=== PATIENT | male | born 1950 | race Two or more races ===

== ENCOUNTER 2021-04-20 22:44 | Inpatient (IN) | payer OTHER ==
[~2021-04-20] VITALS: Ht 177.8 cm; Wt 78.5 kg
[2021-04-20] MEDS ORDERED: MORPHINE SULFATE 4 MG/ML CPJ (NOT FOR IM USE) IV STA (23:43)
[2021-04-20] MEDS ORDERED: ACETAMINOPHEN 325MG TABLET PO STA (23:43)
[2021-04-21 00:39] LABS: BASOPHILS % 1.4 % (0.0-2.0); EOSINOPHILS % 0.3 % (0.0-5.0); HEMOGLOBIN. 12.1 g/dL (14.0-18.0); LYMPHOCYTES % 30.7 % (20.0-50.0); MEAN CORPUSCULAR VOLUME 95.6 fL (80.0-94.0); MEAN PLATELET VOLUME 8.3 fl (7.4-10.4); MONOCYTES % 14.8 % (2.0-8.0); NEUTROPHILS % 52.8 % (40.0-76.0); PLATELET 191 x1000/uL (130-400); RED BLOOD CELL COUNT 3.76 mill/uL (4.7-6.1)
[2021-04-21 00:41] LABS: CHLORIDE 105 mEq/L (98-107)
[2021-04-21] MEDS ORDERED: LACTATED RINGERS 1,000 ML IV SCH (02:00)
[2021-04-21] MEDS ORDERED: MORPHINE SULFATE 2 MG/ML CPJ (NOT FOR IM USE) IV PRN (04:00)
[2021-04-21] MEDS ORDERED: HYDROCODONE/ACETAMINOPHEN 5/325MG TABLET PO PRN (04:00)
[2021-04-21] MEDS ORDERED: ACETAMINOPHEN 325MG TABLET PO PRN (04:00)
[2021-04-21] MEDS ORDERED: GUAIFENESIN 200MG/10ML SUGAR FREE UDC PO PRN (04:00)
[2021-04-21] MEDS ORDERED: DOCUSATE SODIUM 100MG CAPSULE PO PRN (04:00)
[2021-04-21] MEDS ORDERED: ONDANSETRON HCL 4MG/2ML INJ IV PRN (04:00)
[2021-04-21 06:23] LABS: CREATINE KINASE 105 IU/L (39-308)
[2021-04-21 08:35] VITALS: BP 110/65
[2021-04-21 09:30] VITALS: BP 110/65
[2021-04-21] MEDS: ASPIRIN 81MG EC TABLET PO SCH (11:41)
[2021-04-21] MEDS: MULTIVITAMINS,THER W-MINERALS TABLET PO SCH (11:41)
[2021-04-21] MEDS: ENOXAPARIN 30MG/0.3ML SYR SUBCUT SCH (11:42)
[2021-04-21 12:05] VITALS: BP 106/72
[2021-04-21 12:12] VITALS: BP 83/49
[2021-04-21] MEDS: PROPRANOLOL HCL 10MG TABLET PO SCH ×2 (13:00→20:12)
[2021-04-21] MEDS: LAMOTRIGINE 100MG TABLET PO SCH ×2 (14:45→20:12)
[2021-04-21 16:12] VITALS: BP 91/54
[2021-04-21 16:23] LABS: CREATINE KINASE 83 IU/L (39-308)
[2021-04-21] MEDS: SODIUM CHLORIDE 0.9% 1,000 ML IV SCH ×2 (17:22→20:13)
[2021-04-21 20:00] VITALS: BP 90/54
[2021-04-21] MEDS ORDERED: NALOXONE HCL 0.4MG/ML VIAL IV PRN (22:30)
[2021-04-22] VITALS (7 sets, daily range): BP systolic 92–148; BP diastolic 58–87
[2021-04-22] MEDS: LORAZEPAM 2MG/ML CPJ IV PRN ×2 (02:51→10:46)
[2021-04-22 07:22] LABS: BASOPHILS % 1.1 % (0.0-2.0); CHLORIDE 110 mEq/L (98-107); EOSINOPHILS % 0.8 % (0.0-5.0); HEMATOCRIT. 33.1 % (42.0-52.0); LYMPHOCYTES % 31.8 % (20.0-50.0); MEAN CORPUSCULAR HEMOGLOBIN 32.4 pg (28.0-32.0); MEAN CORPUSCULAR VOLUME 97.2 fL (80.0-94.0); MEAN PLATELET VOLUME 8.6 fl (7.4-10.4); MONOCYTES % 14.5 % (2.0-8.0); NEUTROPHILS % 51.8 % (40.0-76.0); PLATELET 136 x1000/uL (130-400); RED BLOOD CELL COUNT 3.41 mill/uL (4.7-6.1); RED CELL DISTRIBUTION WIDTH 13.7 % (11.6-14.6)
[2021-04-22 07:30] LABS: HDL CHOLESTEROL 37 mg/dL (40-59); LDL CHOLESTEROL 99 mg/dL (5-100)
[2021-04-22] MEDS: ENOXAPARIN 30MG/0.3ML SYR SUBCUT SCH (08:43)
[2021-04-22] MEDS: MULTIVITAMINS,THER W-MINERALS TABLET PO SCH (08:43)
[2021-04-22] MEDS: LAMOTRIGINE 100MG TABLET PO SCH ×2 (08:43→21:21)
[2021-04-22] MEDS: ASPIRIN 81MG EC TABLET PO SCH (08:44)
[2021-04-22] MEDS: PROPRANOLOL HCL 10MG TABLET PO SCH ×2 (08:49→21:00)
[2021-04-22] MEDS: SODIUM CHLORIDE 0.9% 1,000 ML IV SCH ×2 (08:55→18:45)
[2021-04-22] MEDS: CHLORDIAZEPOXIDE 5 MG CAPSULE PO SCH ×2 (13:12→21:20)
[2021-04-22] MEDS: HALOPERIDOL LACTATE 5MG/ML VIAL IM PRN ×2 (14:48→23:05)
[2021-04-23] VITALS: BP 126/91
[2021-04-23] MEDS: LORAZEPAM 2MG/ML CPJ IV PRN ×2 (03:40→21:37)
[2021-04-23 04:00] VITALS: BP 128/72
[2021-04-23] MEDS: SODIUM CHLORIDE 0.9% 1,000 ML IV SCH ×2 (04:59→14:59)
[2021-04-23] MEDS: CHLORDIAZEPOXIDE 5 MG CAPSULE PO SCH ×4 (05:01→22:00)
[2021-04-23 08:00] VITALS: BP 128/56
[2021-04-23] MEDS: LAMOTRIGINE 100MG TABLET PO SCH ×3 (08:52→21:27)
[2021-04-23] MEDS: ASPIRIN 81MG EC TABLET PO SCH (08:52)
[2021-04-23] MEDS: PROPRANOLOL HCL 10MG TABLET PO SCH ×3 (08:53→21:27)
[2021-04-23] MEDS: MULTIVITAMINS,THER W-MINERALS TABLET PO SCH (08:53)
[2021-04-23] MEDS: ENOXAPARIN 40MG/0.4ML SYR SUBCUT SCH (08:54)
[2021-04-23 12:00] VITALS: BP_SYST 127; BP_SYST 128; BP_DIAS 56; BP_DIAS 76
[2021-04-23 16:00] VITALS: BP 92/63
[2021-04-23 20:00] VITALS: BP 128/62
[2021-04-24] VITALS: BP 125/95
[2021-04-24] MEDS: HALOPERIDOL LACTATE 5MG/ML VIAL IM PRN (00:15)
[2021-04-24] MEDS: SODIUM CHLORIDE 0.9% 1,000 ML IV SCH ×2 (00:23→20:45)
[2021-04-24 04:00] VITALS: BP 114/63
[2021-04-24] MEDS: CHLORDIAZEPOXIDE 5 MG CAPSULE PO SCH ×3 (06:00→21:39)
[2021-04-24] MEDS: LORAZEPAM 2MG/ML CPJ IV PRN (06:20)
[2021-04-24 08:00] VITALS: BP 123/50
[2021-04-24] MEDS: MULTIVITAMINS,THER W-MINERALS TABLET PO SCH ×2 (09:00→14:08)
[2021-04-24] MEDS: ASPIRIN 81MG EC TABLET PO SCH (09:00)
[2021-04-24] MEDS: LAMOTRIGINE 100MG TABLET PO SCH ×3 (09:00→21:39)
[2021-04-24] MEDS: PROPRANOLOL HCL 10MG TABLET PO SCH ×2 (09:00→21:39)
[2021-04-24] MEDS: ENOXAPARIN 40MG/0.4ML SYR SUBCUT SCH (10:12)
[2021-04-24 12:00] VITALS: BP 123/55
[2021-04-24 16:00] VITALS: BP 130/52
[2021-04-24 20:00] VITALS: BP 126/84
[2021-04-25 00:17] VITALS: BP 125/72
[2021-04-25] MEDS: SODIUM CHLORIDE 0.9% 1,000 ML IV SCH ×3 (01:38→16:58)
[2021-04-25 04:00] VITALS: BP 105/69
[2021-04-25] MEDS: CHLORDIAZEPOXIDE 5 MG CAPSULE PO SCH ×3 (06:18→21:02)
[2021-04-25] MEDS: LAMOTRIGINE 100MG TABLET PO SCH ×2 (09:00→17:00)
[2021-04-25] MEDS: ASPIRIN 81MG EC TABLET PO SCH (09:00)
[2021-04-25] MEDS: ENOXAPARIN 40MG/0.4ML SYR SUBCUT SCH (09:55)
[2021-04-25] MEDS: PROPRANOLOL HCL 10MG TABLET PO SCH ×2 (09:57→21:00)
[2021-04-25 12:00] VITALS: BP 116/75
[2021-04-25 16:00] VITALS: BP 124/68
[2021-04-25] MEDS: LORAZEPAM 2MG/ML CPJ IV PRN (16:13)
[2021-04-25 18:28] LABS: BG BASE EXCESS -2.8 mmol/L (-2.0-2.0); BG CARBOXYHEMOGLOBIN 0.4 % (0.5-1.5); BG DEOXYHEMOGLOBIN 5.8 % (0.0-5.0); BG FRACTION INSPIRED OXYGEN 28; BG HCO3 ACT 20.2 mmol/L (22.0-26.0); BG METHEMOGLOBIN 0.4 % (0.0-1.5); BG OXYGEN SATURATION 94.2 % (92.0-98.5); BG OXYHEMOGLOBIN 93.4 % (94.0-97.0); BG PCO2 29.7 mmHg (35.0-45.0); BG PH 7.451 (7.350-7.450); BG PO2 70.7 mmHg (75.0-100.0); BG SAMPLE SITE RIGHT RADIAL; BG TOTAL HEMOGLOBIN 11.8 g/dL (12.0-18.0); BG VENT MODE NASAL CANNULA
[2021-04-25 20:35] VITALS: BP 122/62
[2021-04-25 20:48] LABS: HEMATOCRIT. 34.6 % (42.0-52.0); HEMOGLOBIN. 11.9 g/dL (14.0-18.0); MEAN CORPUSCULAR HEMOGLOBIN 32.6 pg (28.0-32.0); MEAN CORPUSCULAR VOLUME 95.3 fL (80.0-94.0); MEAN PLATELET VOLUME 8.3 fl (7.4-10.4); PLATELET 190 x1000/uL (130-400); RED BLOOD CELL COUNT 3.63 mill/uL (4.7-6.1); RED CELL DISTRIBUTION WIDTH 13.4 % (11.6-14.6)
[2021-04-25] MEDS: PANTOPRAZOLE SODIUM 40 MG/VIAL IV SCH (21:04)
[2021-04-25 21:56] LABS: PLATELET ESTIMATE NORMAL
[2021-04-25] MEDS: ACETAMINOPHEN 650MG SUPP PR PRN (22:18)
[2021-04-26] VITALS: BP 120/63
[2021-04-26 04:00] VITALS: BP 114/73
[2021-04-26] MEDS: LORAZEPAM 2MG/ML CPJ IV PRN ×2 (04:29→20:31)
[2021-04-26] MEDS: CHLORDIAZEPOXIDE 5 MG CAPSULE PO SCH ×3 (06:20→20:33)
[2021-04-26 08:11] VITALS: BP 129/63
[2021-04-26] MEDS: ACETAMINOPHEN 650MG SUPP PR PRN (08:24)
[2021-04-26] MEDS: LAMOTRIGINE 100MG TABLET PO SCH ×2 (09:00→20:34)
[2021-04-26] MEDS: MULTIVITAMINS,THER W-MINERALS TABLET PO SCH (09:00)
[2021-04-26] MEDS: ASPIRIN 81MG EC TABLET PO SCH (09:00)
[2021-04-26] MEDS: PROPRANOLOL HCL 10MG TABLET PO SCH ×2 (09:00→20:33)
[2021-04-26] MEDS: PANTOPRAZOLE SODIUM 40 MG/VIAL IV SCH (10:18)
[2021-04-26] MEDS: DEXT 5%/0.9% NACL 1,000 ML IV SCH ×2 (11:48→20:41)
[2021-04-26 12:15] VITALS: BP 100/60
[2021-04-26 16:06] VITALS: BP 115/74
[2021-04-26 16:37] LABS: BASOPHILS % 0.3 % (0.0-2.0); HEMATOCRIT. 32.1 % (42.0-52.0); HEMOGLOBIN. 10.9 g/dL (14.0-18.0); LYMPHOCYTES % 11.4 % (20.0-50.0); MEAN CORPUSCULAR HEMOGLOBIN 32.8 pg (28.0-32.0); MEAN CORPUSCULAR VOLUME 96.2 fL (80.0-94.0); MEAN PLATELET VOLUME 9.1 fl (7.4-10.4); MONOCYTES % 13.8 % (2.0-8.0); NEUTROPHILS % 74.5 % (40.0-76.0); PLATELET 173 x1000/uL (130-400); RED BLOOD CELL COUNT 3.34 mill/uL (4.7-6.1); RED CELL DISTRIBUTION WIDTH 13.4 % (11.6-14.6)
[2021-04-26 17:56] LABS: CHLORIDE 110 mEq/L (98-107)
[2021-04-26] MEDS ORDERED: POTASSIUM CHLORIDE INJ 40 MEQ in DEXT 5% WATER 250 ML IV NR ×2 (19:30→23:30)
[2021-04-26 20:00] VITALS: BP 121/68
[2021-04-26] MEDS: FAMOTIDINE 20MG/2ML VIAL IV SCH (20:36)
[2021-04-26] MEDS: HALOPERIDOL LACTATE 5MG/ML VIAL IM PRN (20:48)
[2021-04-27] VITALS: BP 134/28
[2021-04-27] MEDS: ACETYLCYSTEINE 100MG/ML 10% VIAL 4ML INH SCH (01:00)
[2021-04-27] MEDS ORDERED: LORAZEPAM 2MG/ML CPJ IV PRN (03:30)
[2021-04-27 04:00] VITALS: BP 144/35
[2021-04-27] MEDS: CHLORDIAZEPOXIDE 5 MG CAPSULE PO SCH ×2 (05:42→15:11)
[2021-04-27 08:00] VITALS: BP 107/67
[2021-04-27] MEDS: PROPRANOLOL HCL 10MG TABLET PO SCH ×2 (09:00→20:47)
[2021-04-27] MEDS: ENOXAPARIN 40MG/0.4ML SYR SUBCUT SCH (09:00)
[2021-04-27] MEDS: FAMOTIDINE 20MG/2ML VIAL IV SCH ×2 (09:39→20:44)
[2021-04-27] MEDS: LAMOTRIGINE 100MG TABLET PO SCH ×2 (09:39→20:44)
[2021-04-27] MEDS: ASPIRIN 81MG EC TABLET PO SCH (09:39)
[2021-04-27] MEDS: MULTIVITAMINS,THER W-MINERALS TABLET PO SCH (09:39)
[2021-04-27] MEDS: DEXT 5%/0.9% NACL 1,000 ML IV SCH ×2 (09:47→17:03)
[2021-04-27 10:07] LABS: CHLORIDE 113 mEq/L (98-107)
[2021-04-27 12:00] VITALS: BP 97/58
[2021-04-27 16:00] VITALS: BP 114/73
[2021-04-27 20:00] VITALS: BP 106/59
[2021-04-28] VITALS (7 sets, daily range): BP systolic 86–135; BP diastolic 45–72
[2021-04-28] MEDS: DEXT 5%/0.9% NACL 1,000 ML IV SCH ×3 (03:46→23:00)
[2021-04-28] MEDS: IPRATROPIUM/ALBUTEROL 0.5-3(2.5)MG/3ML NEB HHN PRN ×4 (04:12→12:07)
[2021-04-28] MEDS: ACETYLCYSTEINE 100MG/ML 10% VIAL 4ML INH SCH ×2 (08:42→12:07)
[2021-04-28] MEDS: PROPRANOLOL HCL 10MG TABLET PO SCH ×2 (09:00→21:00)
[2021-04-28] MEDS: MULTIVITAMINS,THER W-MINERALS TABLET PO SCH (10:19)
[2021-04-28] MEDS: ASPIRIN 81MG EC TABLET PO SCH (10:19)
[2021-04-28] MEDS: ENOXAPARIN 40MG/0.4ML SYR SUBCUT SCH (10:19)
[2021-04-28] MEDS: LAMOTRIGINE 100MG TABLET PO SCH ×2 (10:19→21:00)
[2021-04-28] MEDS: FAMOTIDINE 20MG/2ML VIAL IV SCH ×2 (10:20→21:18)
[2021-04-28] MEDS ORDERED: FUROSEMIDE 40MG/4ML VIAL IVP SCH (16:00)
[2021-04-28 16:01] LABS: BG BASE EXCESS 0.8 mmol/L (-2.0-2.0); BG DEOXYHEMOGLOBIN 14.1 % (0.0-5.0); BG HCO3 ACT 24.9 mmol/L (22.0-26.0); BG METHEMOGLOBIN 0.3 % (0.0-1.5); BG OXYGEN SATURATION 85.9 % (92.0-98.5); BG OXYHEMOGLOBIN 85.6 % (94.0-97.0); BG PCO2 37.8 mmHg (35.0-45.0); BG PH 7.437 (7.350-7.450); BG PO2 47.1 mmHg (75.0-100.0); BG SAMPLE SITE RIGHT BRACHIAL; BG TOTAL HEMOGLOBIN 11.1 g/dL (12.0-18.0); BG VENT MODE NASAL CANNULA
[2021-04-28] MEDS: IPRATROPIUM/ALBUTEROL 0.5-3(2.5)MG/3ML NEB HHN SCH ×2 (16:45→21:44)
[2021-04-28] MEDS: THIAMINE HCL 100MG TABLET PO SCH (17:15)
[2021-04-28] MEDS: PIPERACILLIN/TAZOBACTAM 3.375 G in DEXTROSE 5% WATER 50 ML IV SCH (19:55)
[2021-04-28 22:02] LABS: INR 1.2; PROTHROMBIN TIME 12.3 sec (9.6-11.0)
[2021-04-29] VITALS (64 sets, daily range): BP systolic 61–140; BP diastolic 40–97
[2021-04-29] MEDS: IPRATROPIUM/ALBUTEROL 0.5-3(2.5)MG/3ML NEB HHN SCH ×6 (01:16→20:30)
[2021-04-29] MEDS: ACETYLCYSTEINE 100MG/ML 10% VIAL 4ML INH SCH ×3 (01:17→16:58)
[2021-04-29] MEDS: PIPERACILLIN/TAZOBACTAM 3.375 G in DEXTROSE 5% WATER 50 ML IV SCH ×4 (01:53→17:32)
[2021-04-29] MEDS: PROPRANOLOL HCL 10MG TABLET PO SCH ×2 (09:00→21:00)
[2021-04-29] MEDS: LAMOTRIGINE 100MG TABLET PO SCH ×2 (09:00→14:18)
[2021-04-29] MEDS: ENOXAPARIN 40MG/0.4ML SYR SUBCUT SCH (09:00)
[2021-04-29] MEDS ORDERED: PROPOFOL 10MG/ML 100ML 100 ML IV PRN (09:00)
[2021-04-29] MEDS ORDERED: NOREPINEPHRINE 32 MG in DEXT 5% WATER 218 ML IV PRN (09:15)
[2021-04-29] MEDS ORDERED: FENTANYL CITRATE/PF 2,500 MCG in SODIUM CHLORIDE 0.9% 200 ML IV PRN (09:30)
[2021-04-29 10:02] LABS: BG BASE EXCESS 1.3 mmol/L (-2.0-2.0); BG CARBOXYHEMOGLOBIN 0.3 % (0.5-1.5); BG DEOXYHEMOGLOBIN 0.9 % (0.0-5.0); BG FRACTION INSPIRED OXYGEN 100; BG HCO3 ACT 26.8 mmol/L (22.0-26.0); BG METHEMOGLOBIN 0.1 % (0.0-1.5); BG OXYGEN SATURATION 99.1 % (92.0-98.5); BG OXYHEMOGLOBIN 98.7 % (94.0-97.0); BG PH 7.383 (7.350-7.450); BG PO2 163.3 mmHg (75.0-100.0); BG SAMPLE SITE RIGHT RADIAL; BG TOTAL HEMOGLOBIN 12.1 g/dL (12.0-18.0); BG VENT MODE VENT - AC
[2021-04-29] MEDS ORDERED: LIDOCAINE HCL 1% 20ML VIAL (Pyxis) INJ ONE (10:16)
[2021-04-29] MEDS: ASPIRIN 81MG EC TABLET PO SCH (11:25)
[2021-04-29] MEDS: MULTIVITAMINS,THER W-MINERALS TABLET PO SCH (11:25)
[2021-04-29] MEDS: FAMOTIDINE 20MG/2ML VIAL IV SCH ×2 (11:26→21:07)
[2021-04-29] MEDS: THIAMINE HCL 100MG TABLET PO SCH (11:26)
[2021-04-29] MEDS: DEXT 5%/0.9% NACL 1,000 ML IV SCH ×2 (11:34→21:07)
[2021-04-29 13:37] LABS: HEMATOCRIT. 32.2 % (42.0-52.0); HEMOGLOBIN. 10.7 g/dL (14.0-18.0); MEAN CORPUSCULAR HEMOGLOBIN 31.8 pg (28.0-32.0); MEAN CORPUSCULAR VOLUME 95.6 fL (80.0-94.0); MEAN PLATELET VOLUME 7.2 fl (7.4-10.4); PLATELET 223 x1000/uL (130-400); RED BLOOD CELL COUNT 3.37 mill/uL (4.7-6.1); RED CELL DISTRIBUTION WIDTH 13.7 % (11.6-14.6)
[2021-04-29 13:57] LABS: CHLORIDE 107 mEq/L (98-107)
[2021-04-29 14:30] LABS: PLATELET ESTIMATE NORMAL
[2021-04-29 14:39] LABS: CLARITY URINE CLOUDY (CLEAR); COLOR URINE DARK YELLOW (YELLOW); KETONES URINE NEGATIVE (NEGATIVE); LEUKOCYTE ESTERASE URINE NEGATIVE (NEGATIVE); NITRITE URINE NEGATIVE (NEGATIVE); OCCULT BLOOD URINE NEGATIVE (NEGATIVE); PROTEIN URINE NEGATIVE (NEGATIVE); SPECIFIC GRAVITY URINE 1.015 (1.005-1.030)
[2021-04-29] MEDS ORDERED: POTASSIUM CHLORIDE INJ 40 MEQ in DEXT 5% WATER 250 ML IV NR (18:00)
[2021-04-30] VITALS (85 sets, daily range): BP systolic 46–126; BP diastolic 18–86
[2021-04-30] MEDS: ACETYLCYSTEINE 100MG/ML 10% VIAL 4ML INH SCH ×2 (00:17→08:59)
[2021-04-30] MEDS: IPRATROPIUM/ALBUTEROL 0.5-3(2.5)MG/3ML NEB HHN SCH ×3 (00:17→08:59)
[2021-04-30] MEDS: PIPERACILLIN/TAZOBACTAM 3.375 G in DEXTROSE 5% WATER 50 ML IV SCH ×2 (06:48)
[2021-04-30] MEDS: DEXT 5%/0.9% NACL 1,000 ML IV SCH (06:48)
[2021-04-30 07:26] LABS: BG CARBOXYHEMOGLOBIN 0.3 % (0.5-1.5); BG DEOXYHEMOGLOBIN 0.2 % (0.0-5.0); BG FRACTION INSPIRED OXYGEN 80; BG METHEMOGLOBIN 0.7 % (0.0-1.5); BG OXYGEN SATURATION 99.8 % (92.0-98.5); BG OXYHEMOGLOBIN 98.8 % (94.0-97.0); BG PCO2 47.8 mmHg (35.0-45.0); BG PH 7.353 (7.350-7.450); BG PO2 259.1 mmHg (75.0-100.0); BG SAMPLE SITE RIGHT RADIAL; BG TOTAL HEMOGLOBIN 11.6 g/dL (12.0-18.0); BG VENT MODE VENT - AC
[2021-04-30 08:01] LABS: BASOPHILS % 0.3 % (0.0-2.0); EOSINOPHILS % 0.3 % (0.0-5.0); HEMATOCRIT. 29.8 % (42.0-52.0); HEMOGLOBIN. 9.9 g/dL (14.0-18.0); LYMPHOCYTES % 8.1 % (20.0-50.0); MEAN CORPUSCULAR HEMOGLOBIN 31.3 pg (28.0-32.0); MEAN CORPUSCULAR VOLUME 94.3 fL (80.0-94.0); MEAN PLATELET VOLUME 7.6 fl (7.4-10.4); MONOCYTES % 9.9 % (2.0-8.0); NEUTROPHILS % 81.4 % (40.0-76.0); PLATELET 257 x1000/uL (130-400); RED BLOOD CELL COUNT 3.16 mill/uL (4.7-6.1); RED CELL DISTRIBUTION WIDTH 13.8 % (11.6-14.6)
[2021-04-30 08:21] LABS: CHLORIDE 110 mEq/L (98-107)
[2021-04-30] MEDS: FAMOTIDINE 20MG/2ML VIAL IV SCH (09:25)
[2021-04-30] MEDS: LAMOTRIGINE 100MG TABLET PO SCH (09:25)
[2021-04-30] MEDS: THIAMINE HCL 100MG TABLET PO SCH (09:25)
[2021-04-30] MEDS: ENOXAPARIN 40MG/0.4ML SYR SUBCUT SCH (09:25)
[2021-04-30] MEDS: MULTIVITAMINS,THER W-MINERALS TABLET PO SCH (09:26)
[2021-04-30] MEDS: PROPRANOLOL HCL 10MG TABLET PO SCH (09:26)
[2021-04-30] MEDS: ASPIRIN 81MG EC TABLET PO SCH (09:26)
[2021-04-30] MEDS: MORPHINE SULFATE 250 MG in DEXT 5% WATER 240 ML IV PRN ×2 (12:11→18:54)
[2021-05-01] VITALS (12 sets, daily range): BP systolic 55–74; BP diastolic 35–40
[2021-05-01] MEDS: MORPHINE SULFATE 250 MG in DEXT 5% WATER 240 ML IV PRN ×2 (01:33→18:21)
[2021-05-02] VITALS: BP 63/36
[2021-05-02 04:00] VITALS: BP 69/38
[2021-05-02 08:00] VITALS: BP 72/38
[2021-05-02 12:00] VITALS: BP 69/34
[2021-05-02 16:00] VITALS: BP 76/42
[2021-05-02 17:21] VITALS: BP 76/42
[2021-05-03] VITALS: BP 66/33
[2021-05-03 04:00] VITALS: BP 74/40
[2021-05-03 08:00] VITALS: BP 79/37
[2021-05-03 12:00] VITALS: BP 64/26
[2021-05-03] MEDS ORDERED: MORPHINE SULFATE 250 MG in DEXT 5% WATER 240 ML IV SCH (14:15)
[2021-05-03 15:25] VITALS: BP 118/69
== END 2021-05-03 12:48 | DRG 208 ==
LOC: ER 22:44 → 6WST 04-21 03:06 → EDBEDREQTM 04-21 03:22 → EDBEDREQ 04-21 03:22 → ENRESERV 04-21 07:37 → 6WST 04-22 19:45 → 3WST 04-28 17:53 → CVICU 04-29 09:10 → 6EST 05-01 01:45
PROVIDERS: ADMIT Hospitalist; ATTEND Hospitalist
PROC: 5A1945Z Respiratory Ventilation, 24-96 Consecutive Hours (ICD-10-PCS; principal; 2021-04-29)
PROC: 0BH17EZ Insertion of Endotracheal Airway into Trachea, Via Natural or Artificial Opening (ICD-10-PCS; 2021-04-29)
PROC: 02HV33Z Insertion of Infusion Device into Superior Vena Cava, Percutaneous Approach (ICD-10-PCS; 2021-04-29)
PROC: B548ZZA Ultrasonography of Superior Vena Cava, Guidance (ICD-10-PCS; 2021-04-29)
DX: J96.00 Acute respiratory failure, unspecified whether with hypoxia or hypercapnia (principal); L89.153 Pressure ulcer of sacral region, stage 3; J69.0 Pneumonitis due to inhalation of food and vomit; E43 Unspecified severe protein-calorie malnutrition; G93.40 Encephalopathy, unspecified; N17.9 Acute kidney failure, unspecified; F10.139 Alcohol abuse with withdrawal, unspecified; Z66 Do not resuscitate; I46.9 Cardiac arrest, cause unspecified; Z51.5 Encounter for palliative care; R07.89 Other chest pain; F31.9 Bipolar disorder, unspecified; Z20.822 Contact with and (suspected) exposure to COVID-19; Y90.9 Presence of alcohol in blood, level not specified; G25.0 Essential tremor; D64.9 Anemia, unspecified; F41.9 Anxiety disorder, unspecified; G40.909 Epilepsy, unspecified, not intractable, without status epilepticus; Z82.3 Family history of stroke; Z59.0 Homelessness; Z82.5 Family history of asthma and other chronic lower respiratory diseases; Z83.3 Family history of diabetes mellitus; Z86.73 Personal history of transient ischemic attack (TIA), and cerebral infarction without residual deficits; Z68.24 Body mass index [BMI] 24.0-24.9, adult
CPT/HCPCS: 36415; 36600; 71045; 76937; 80048; 80053; 80061; 81003; 82040; 82140; 82375; 82550; 82805; 82962; 83880; 84134; 84478; 84484; 85025; 87070; 87426; 93005; 93306; 93970; 94003; 94640; 99285; C1725; C9113; J1630; J1650; J1940; J2060; J2274; J2543; J3480; J3490; J7030; J7040; J7042; J7060; J7608; A4315